=== PATIENT | female | born 1940 | race Asian ===

== ENCOUNTER → 2018-07-08 | Outpatient (CLI) | payer MEDICARE, OTHER ==
[~2018-07-08] VITALS: Ht 162.6 cm; Wt 78.5 kg
[~2018-07-08] MED LIST: ALBU8.5H8 IH; ALFU10TA30 PO; ASPI-1182 PO; CETI-290 PO; DSS100 PO; FOSI20TA98 PO; GLYB5 PO; IBUP-2070 PO; METO-558 PO; NIFE90TA38 PO; POTA10CA44 PO; SIMV-259 PO; SITA100 PO; VITAD400 PO
[2018-07-08 14:58] VITALS: BP 173/76
== END | disposition home or self-care (01) ==
LOC: SRCNTR 14:23
PROVIDERS: ATTEND Internal Medicine Critical Care Medicine
DX: J44.9 Chronic obstructive pulmonary disease, unspecified (principal); G47.33 Obstructive sleep apnea (adult) (pediatric); I10 Essential (primary) hypertension; E11.9 Type 2 diabetes mellitus without complications; D64.9 Anemia, unspecified
CPT/HCPCS: G0463

== ENCOUNTER → 2018-07-27 | Outpatient (CLI) | payer MEDICARE, OTHER ==
[~2018-07-27] VITALS: Ht 165.1 cm; Wt 73.2 kg
[~2018-07-27] MED LIST changes: +FURO40 PO
[2018-07-27 13:44] VITALS: BP 148/65
== END | disposition home or self-care (01) ==
LOC: EDSEX → SRCNTR 13:35
PROVIDERS: ATTEND Internal Medicine Critical Care Medicine
DX: J44.9 Chronic obstructive pulmonary disease, unspecified (principal); G47.33 Obstructive sleep apnea (adult) (pediatric); D64.9 Anemia, unspecified; I10 Essential (primary) hypertension; E11.9 Type 2 diabetes mellitus without complications
CPT/HCPCS: G0463

== ENCOUNTER 2024-10-15 16:12 | Inpatient (IN) | payer MEDICARE, OTHER ==
[~2024-10-15] VITALS: Ht 162.6 cm; Wt 51.4 kg
[~2024-10-15 16:12] MED LIST changes: -ALBU8.5H8 IH; -ASPI-1182 PO; +ASPI-1444 PO; -CETI-290 PO; +CETI-450 PO; +CHOL100018 PO; -DSS100 PO; +DULA1.5P SQ; -FURO40 PO; +FURO40TA6 PO; +GLYB-145 PO; -GLYB5 PO; +IBUP-1492 PO; -IBUP-2070 PO; +METO-325 PO; -METO-558 PO; -NIFE90TA38 PO; +NIFE90TA91 PO; -POTA10CA44 PO; +POTA10CA95 PO; -VITAD400 PO
[2024-10-15] MEDS ORDERED: SITA50 PO (16:30)
[2024-10-15] MEDS ORDERED: ATOR10TA69 PO (16:30)
[2024-10-15] MEDS ORDERED: LOSA-382 PO (16:30)
[2024-10-15] MEDS ORDERED: SEVE800T38 PO (16:30)
[2024-10-15] MEDS ORDERED: HYDR50TA37 PO (16:30)
[2024-10-15] MEDS ORDERED: HYDR-4527 PO (16:30)
[2024-10-15] MEDS ORDERED: TIRZ2.5P SQ (16:30)
[2024-10-15] MEDS ORDERED: CLOB15CR41 TP (16:30)
[2024-10-15] MEDS ORDERED: CHOL25TA4 PO (16:32)
[2024-10-15] MEDS ORDERED: ACETAMINOPHEN 325 MG TABLET PO PRN (16:45)
[2024-10-15] MEDS ORDERED: ONDANSETRON HCL 4 MG/2 ML VIAL IVP PRN (16:45)
[2024-10-15 16:53] LABS: BASOPHILS % (AUTO) 0.8 % (0.0-2.0); EOSINOPHILS % (AUTO) 3.4 % (1.0-6.0); HEMATOCRIT 39.9 % (41-53); LYMPHOCYTES % (AUTO) 27.5 % (22.0-44.0); MEAN CORPUSCULAR HEMOGLOBIN 32.2 pg (26.0-34.0); MEAN CORPUSCULAR HGB CONC 32.6 G/dL (31.0-37.0); MEAN CORPUSCULAR VOLUME 99 fL (80-100); MONOCYTES # (AUTO) 0.5 K/uL (0.1-1.0); MONOCYTES % (AUTO) 6.6 % (2.0-9.0); NEUTROPHILS # (AUTO) 4.4 K/uL (1.8-7.7); NEUTROPHILS % (AUTO) 61.7 % (40.0-70.0); PLATELET COUNT (AUTO) 144 K/uL (150-450); RED BLOOD CELL COUNT(AUTO) 4.04 MIL/uL (4.50-5.90); RED CELL DISTRIBUTION WIDTH 15.6 % (11.5-14.5); WHITE BLOOD COUNT (AUTO) 7.2 K/uL (4.5-11.0)
[2024-10-15] MEDS: FUROSEMIDE 40 MG/4 ML VIAL IVP ONE (16:58)
[2024-10-15 17:00] VITALS: PULSE 79; PULSE 86; RESP 20; O2SAT 98; O2SAT 99
[2024-10-15] MEDS ORDERED: DEXTROSE 50%-WATER 25 GM/50 ML SYRINGE IVP PRN (17:00)
[2024-10-15 17:02] LABS: ANION GAP 10 mmol/L (8-16); CALCIUM, TOTAL 8.6 mg/dL (8.8-10.5); CARBON DIOXIDE 24 mmol/L (22-29); CHLORIDE 99 mmol/L (98-107); CREATININE 6.85 mg/dL (0.60-1.30); GLOMERULAR FILTR. RATE CALC 8 mL/min (>60); GLUCOSE,RANDOM 180 mg/dL (70-110); POTASSIUM 5.3 mmol/L (3.5-5.1); SODIUM SERUM 133 mmol/L (136-145); UREA NITROGEN, BLOOD 89 mg/dL (7-18)
[2024-10-15 17:04] LABS: PROTHROMBIN TIME 10.6 SEC (9.4-11.6)
[2024-10-15 17:09] LABS: LACTIC ACID 1.8 mmol/L (0.4-2.0)
[2024-10-15 17:11] LABS: CREATINE KINASE, TOTAL ONLY 78 U/L (39-308)
[2024-10-15 17:13] LABS: TROPONIN I-HIGH SENSITIVITY 93 ng/L (<76)
[2024-10-15 17:15] LABS: B-TYPE NATRIURETIC PEPTIDE 1640 pg/mL (0-100)
[2024-10-15 18:01] LABS: COVID AG,FIA SOURCE NASAL SWAB
[2024-10-15 18:26] LABS: INFLUENZA TYPE A NEGATIVE FOR TYPE A (NEGATIVE); INFLUENZA TYPE B NEGATIVE FOR TYPE B (NEGATIVE)
[2024-10-15 18:27] LABS: SARS-COV2 (COVID) ANTIGEN,FIA Negative (Negative)
[2024-10-15 19:57] LABS: APPEARANCE,URINE CLEAR (CLEAR); BILIRUBIN,URINE NEGATIVE (NEGATIVE); COLOR,URINE LIGHT YELLOW (YELLOW); GLUCOSE, URINE (UA) 70-100 mg/dL (NEGATIVE); KETONES,URINE NEGATIVE (NEGATIVE); LEUKOCYTE ESTERASE ,URINE NEGATIVE (NEGATIVE); NITRATE,URINE NEGATIVE (NEGATIVE); OCCULT BLOOD,URINE TRACE (NEGATIVE); PROTEIN,URINE 30-70 mg/dL (NEGATIVE); SPECIFIC GRAVITIY, URINE 1.009 (1.003-1.030); UROBILINOGEN,URINE <=1.0 mg/dL (<=1.0)
[2024-10-15 20:04] LABS: BACTERIA,URINE Rare /HPF (None Seen); SQUAMOUS EPITHELIAL CELL,UR Rare /LPF (None Seen); WBC,URINE 0-2 /HPF (0-5)
[2024-10-15] MEDS: DOCUSATE SODIUM 100 MG CAPSULE PO SCH (20:33)
[2024-10-15 22:00] VITALS: BP 147/94; PULSE 100; RESP 20; TEMP 97.6; O2SAT 99
[2024-10-15] MEDS: INSULIN LISPRO 100 UNITS/ML SQ PRN (22:23)
[2024-10-15 23:34] VITALS: BP 104/58; PULSE 81; RESP 18; TEMP 97.7; O2SAT 98
[2024-10-15] MEDS: HEPARIN SODIUM,PORCINE 5,000 UNITS/ML VIAL SQ SCH (23:49)
[2024-10-16] VITALS (14 sets, daily range): BP systolic 110–198; BP diastolic 47–118; PULSE 64–120; RESP 16–24; TEMP 97.7–98.2; O2SAT 93–99
[2024-10-16] MEDS: HydrALAZINE HCL 20 MG/ML VIAL IVP PRN (08:47)
[2024-10-16] MEDS: FAMOTIDINE 20 MG TABLET PO SCH (08:48)
[2024-10-16] MEDS ORDERED: SODIUM CHLORIDE 0.9% 1,000 ML ONE (11:57)
[2024-10-16] MEDS ORDERED: ONDANSETRON HCL 4 MG/2 ML VIAL IVP PRN (12:00)
[2024-10-16] MEDS ORDERED: ZOLPIDEM TARTRATE 5 MG TABLET PO PRN (12:00)
[2024-10-16] MEDS ORDERED: MORPHINE SULFATE 2 MG/ML SYRINGE IVP PRN (12:00)
[2024-10-16] MEDS ORDERED: MAGNESIUM HYDROXIDE SUSPENSION 30 ML UDCUP PO PRN (12:00)
[2024-10-16] MEDS ORDERED: ACETAMINOPHEN 325 MG TABLET PO PRN (12:00)
[2024-10-16] MEDS ORDERED: BISACODYL 10 MG RECTAL RECTAL SUPPOSITORY PR PRN (12:00)
[2024-10-16] MEDS ORDERED: OxyCODONE HCL/ACETAMINOPHEN 5-325 MG TABLET PO PRN (12:00)
[2024-10-16] MEDS: ALBUTEROL SULFATE 2.5 MG/0.5 ML NEB SOLUTION NEB PRN (12:02)
[2024-10-16] MEDS: IPRATROPIUM BROMIDE 0.5 MG/2.5 ML NEB SOLUTION NEB PRN (12:02)
[2024-10-16] MEDS: HEPARIN SODIUM,PORCINE 5,000 UNITS/ML VIAL SQ SCH (16:00)
[2024-10-16 17:46] LABS: GLUCOMETER DEV NAME(LOC) 5N.2C; GLUCOSE,POINT OF CARE 86 MG/DL (70-110)
[2024-10-16 17:46] LABS: GLUCOMETER DEV NAME(LOC) 5N.2C; GLUCOSE,POINT OF CARE 100 MG/DL (70-110)
[2024-10-16 17:46] LABS: GLUCOMETER DEV NAME(LOC) 5N.2C; GLUCOSE,POINT OF CARE 153 MG/DL (70-110)
[2024-10-16 19:55] LABS: GLUCOMETER DEV NAME(LOC) 5N.1D; GLUCOSE,POINT OF CARE 192 MG/DL (70-110)
[2024-10-17] VITALS (15 sets, daily range): BP systolic 113–149; BP diastolic 6–85; PULSE 66–90; RESP 18; TEMP 97.8–98.5; O2SAT 91–99
[2024-10-17 00:01] LABS: GLUCOMETER DEV NAME(LOC) 5N.2C; GLUCOSE,POINT OF CARE 160 MG/DL (70-110)
[2024-10-17 07:35] LABS: CALCIUM, TOTAL 8.7 mg/dL (8.8-10.5); CREATININE 5.3 mg/dL (0.60-1.30); POTASSIUM 4.8 mmol/L (3.5-5.1)
[2024-10-17] MEDS: DOCUSATE SODIUM 100 MG/10 ML LIQUID UDCUP PO SCH (09:00)
[2024-10-17] MEDS: PANTOPRAZOLE SODIUM 40 MG/VIAL IVP SCH (09:03)
[2024-10-17 12:25] LABS: GLUCOMETER DEV NAME(LOC) 5N.2C; GLUCOSE,POINT OF CARE 72 MG/DL (70-110)
[2024-10-17 12:25] LABS: GLUCOMETER DEV NAME(LOC) 5N.2C; GLUCOSE,POINT OF CARE 152 MG/DL (70-110)
[2024-10-17] MEDS ORDERED: SODIUM CHLORIDE 0.9% 1,000 ML ONE (13:07)
[2024-10-17 20:00] LABS: GLUCOMETER DEV NAME(LOC) 5N.2C; GLUCOSE,POINT OF CARE 89 MG/DL (70-110)
[2024-10-18] VITALS (12 sets, daily range): BP systolic 108–141; BP diastolic 50–76; PULSE 69–92; RESP 17–19; TEMP 96.5–98.6; O2SAT 92–98
[2024-10-18 05:16] LABS: GLUCOMETER DEV NAME(LOC) 5S.2D; GLUCOSE,POINT OF CARE 123 MG/DL (70-110)
[2024-10-18 05:16] LABS: GLUCOMETER DEV NAME(LOC) 5S.2D; GLUCOSE,POINT OF CARE 219 MG/DL (70-110)
[2024-10-18 07:03] LABS: BASOPHILS % (AUTO) 0.7 % (0.0-2.0); EOSINOPHILS % (AUTO) 3.8 % (1.0-6.0); HEMATOCRIT 37.9 % (41-53); HEMOGLOBIN 12.6 g/dL (13.5-17.5); LYMPHOCYTES # (AUTO) 1.2 K/uL (1.0-4.8); LYMPHOCYTES % (AUTO) 21.9 % (22.0-44.0); MEAN CORPUSCULAR HEMOGLOBIN 32.3 pg (26.0-34.0); MEAN CORPUSCULAR HGB CONC 33.2 G/dL (31.0-37.0); MEAN CORPUSCULAR VOLUME 97 fL (80-100); MONOCYTES # (AUTO) 0.8 K/uL (0.1-1.0); MONOCYTES % (AUTO) 14.1 % (2.0-9.0); NEUTROPHILS # (AUTO) 3.2 K/uL (1.8-7.7); NEUTROPHILS % (AUTO) 59.5 % (40.0-70.0); PLATELET COUNT (AUTO) 132 K/uL (150-450); RED BLOOD CELL COUNT(AUTO) 3.89 MIL/uL (4.50-5.90); RED CELL DISTRIBUTION WIDTH 15.3 % (11.5-14.5); WHITE BLOOD COUNT (AUTO) 5.4 K/uL (4.5-11.0)
[2024-10-18 07:16] LABS: CALCIUM, TOTAL 8.4 mg/dL (8.8-10.5); CREATININE 4.77 mg/dL (0.60-1.30); POTASSIUM 4.3 mmol/L (3.5-5.1)
[2024-10-18] MEDS ORDERED: SODIUM CHLORIDE 0.9% 1,000 ML ONE (08:59)
[2024-10-18 20:11] LABS: GLUCOMETER DEV NAME(LOC) 5S.2D; GLUCOSE,POINT OF CARE 135 MG/DL (70-110)
== END 2024-10-18 15:40 | disposition home or self-care (01) | DRG 189 ==
LOC: EMS 16:13 → EDH 16:43 → 5N 21:56
PROVIDERS: ADMIT Internal Medicine; ATTEND Internal Medicine
PROC: 5A09357 Assistance with Respiratory Ventilation, Less than 24 Consecutive Hours, Continuous Positive Airway Pressure (ICD-10-PCS; 2024-10-15)
PROC: 5A1D70Z Performance of Urinary Filtration, Intermittent, Less than 6 Hours Per Day (ICD-10-PCS; principal; 2024-10-16)
PROC: 5A1D70Z Performance of Urinary Filtration, Intermittent, Less than 6 Hours Per Day (ICD-10-PCS; 2024-10-17)
PROC: 5A1D70Z Performance of Urinary Filtration, Intermittent, Less than 6 Hours Per Day (ICD-10-PCS; 2024-10-18)
DX: J96.01 Acute respiratory failure with hypoxia (principal); N18.6 End stage renal disease; E87.1 Hypo-osmolality and hyponatremia; I13.2 Hypertensive heart and chronic kidney disease with heart failure and with stage 5 chronic kidney disease, or end stage renal disease; N25.81 Secondary hyperparathyroidism of renal origin; Z20.822 Contact with and (suspected) exposure to COVID-19; E87.5 Hyperkalemia; I16.0 Hypertensive urgency; E11.22 Type 2 diabetes mellitus with diabetic chronic kidney disease; I50.9 Heart failure, unspecified; E78.5 Hyperlipidemia, unspecified; D69.6 Thrombocytopenia, unspecified; D63.1 Anemia in chronic kidney disease; Z99.2 Dependence on renal dialysis; G47.33 Obstructive sleep apnea (adult) (pediatric); J44.9 Chronic obstructive pulmonary disease, unspecified; Z95.0 Presence of cardiac pacemaker; Z83.3 Family history of diabetes mellitus; Z79.82 Long term (current) use of aspirin; Z79.899 Other long term (current) drug therapy
CPT/HCPCS: 71045; 80048; 81001; 82550; 82962; 83605; 83880; 84484; 85025; 85610; 85730; 87081; 87340; 87420; 87804; 90935; 93005; 93306; 94640; 94660; 99285; G0238; J0360; J1644; J1940; J2470; J7030; 36415-L1; 36415-TC; J7613